=== PATIENT | male | born 1950 | race Caucasian/White ===

== ENCOUNTER 2022-08-15 11:08 | Inpatient (IN) | payer MEDICARE ==
[2022-08-15] MEDS ORDERED: Ondansetron PF 4 MG/2 ML Vial IVP PRN (14:20)
[2022-08-15] MEDS ORDERED: Acetaminophen 325 MG TAB PO PRN (14:20)
[2022-08-15] MEDS ORDERED: Acetaminophen 650 MG Suppository PR PRN (14:20)
[2022-08-15] MEDS ORDERED: Ondansetron ODT 4 MG TAB PO PRN ×2 (14:20→14:37)
[2022-08-15 14:21] VITALS: BMI 48.4
[2022-08-15] MEDS ORDERED: Lorazepam 1 MG TAB PO PRN (14:37)
[2022-08-15] MEDS ORDERED: Electrolyte Replacement Protocol 1 EACH FS SCH (14:45)
[2022-08-15] MEDS ORDERED: Vancomycin 1 GM in Premix Bag 1 BAG IVPB SCH (14:45)
[2022-08-15] MEDS ORDERED: Ipratropium/Albuterol 3 ML NEB NEB PRN (15:09)
[2022-08-15 15:13] LABS: #Eosinphils 0.6 10x3/uL (0.0-0.5); #Monocytes 0.9 10x3/uL (0.0-1.1); #Neutrophils 5.5 10x3/uL (1.5-8.4); %Basophils 0.5 % (0.0-2.0); %Eosinophils 6.9 % (0.0-6.0); %Lymphocytes 16.1 % (18.0-47.0); %Monocytes 10.5 % (0.0-10.0); %Neutrophils 65.5 % (40.0-75.0); Hemoglobin 16.9 g/dL (13.5-17.5); Mean Corpuscular HGB CONC 32.4 g/dL (32.0-36.0); Mean Corpuscular Hemoglobin 30.3 pg (27.0-33.0); Mean Corpuscular Volume 93.4 fl (81.2-95.1); Mean Platelet Volume 10.1 fl (7.4-10.4); Platelet Count 242 10x3/uL (150-450); RBC Distribution Width 14.6 % (11.5-14.5); Red Blood Cell (RBC) Count 5.58 10x6/uL (4.32-5.72); White Blood Cell (WBC) Count 8.3 10x3/uL (3.5-10.5)
[2022-08-15 15:27] LABS: Anion Gap 16 mmol/L (10-20); BUN (Urea Nitrogen) 13 mg/dL (8.4-25.7); Calc. Creatinine Clearance 119 mL/min (70-130); Calcium 10.1 mg/dL (7.8-10.44); Carbon Dioxide 26 mmol/L (23-31); Chloride 99 mmol/L (98-107); Estimated GFR 64; Glucose 98 mg/dL (83-110); Magnesium 2.2 mg/dL (1.6-2.6); Potassium 4.3 mmol/L (3.5-5.1); Sodium 137 mmol/L (136-145)
[2022-08-15] MEDS: Thiamine HCl 200 MG/2 ML VIAL SLOW IVP SCH (15:41)
[2022-08-15] MEDS ORDERED: VANCOMYCIN 2 GRAM/400 ML BAG 2 GM in Premix Bag 1 BAG IVPB SCH (16:00)
[2022-08-15 16:14] LABS: Syphilis Antibody Nonreactive (Nonreactive); Syphilis Antibody Index 0.06 S/CO (<1.00 Non-Reactive)
[2022-08-15 17:57] LABS: Amphetamine Not Detected (NotDetected); Barbiturates Screen Not Detected (NotDetected); Benzodiazepine Screen Not Detected (NotDetected); Cocaine Metabolite Screen Not Detected (NotDetected); Methadone Not Detected (NotDetected); Methamphetamine Not Detected (NotDetected); Opiate Screen Not Detected (NotDetected); Oxycodone Screen Not Detected (NotDetected); Phencyclidine (PCP) Not Detected (NotDetected); THC/Cannabinoid Screen Not Detected (NotDetected); Tricyclic Screen Not Detected (NotDetected)
[2022-08-15] MEDS: Cefepime 2 GM in Sodium Chloride 0.9% 100 ML IVPB SCH (20:11)
[2022-08-16] MEDS: Vancomycin 1.5 GRAM/300 ML BAG 1.5 GM in Premix Bag 1 BAG IVPB SCH ×2 (04:34→16:18)
[2022-08-16] MEDS: Furosemide 40 MG/4 ML VIAL SLOW IVP SCH ×2 (05:39→16:17)
[2022-08-16 05:58] LABS: #Eosinphils 0.6 10x3/uL (0.0-0.5); #Monocytes 0.8 10x3/uL (0.0-1.1); #Neutrophils 4.7 10x3/uL (1.5-8.4); %Basophils 0.5 % (0.0-2.0); %Eosinophils 8.1 % (0.0-6.0); %Lymphocytes 16.7 % (18.0-47.0); %Monocytes 10.6 % (0.0-10.0); %Neutrophils 63.6 % (40.0-75.0); Hemoglobin 16.4 g/dL (13.5-17.5); Mean Corpuscular Hemoglobin 30.3 pg (27.0-33.0); Mean Corpuscular Volume 94.6 fl (81.2-95.1); Mean Platelet Volume 10.2 fl (7.4-10.4); Platelet Count 234 10x3/uL (150-450); RBC Distribution Width 14.8 % (11.5-14.5); Red Blood Cell (RBC) Count 5.41 10x6/uL (4.32-5.72); White Blood Cell (WBC) Count 7.4 10x3/uL (3.5-10.5)
[2022-08-16 06:13] LABS: Anion Gap 14 mmol/L (10-20); BUN (Urea Nitrogen) 15 mg/dL (8.4-25.7); Calc. Creatinine Clearance 140 mL/min (70-130); Calcium 9.8 mg/dL (7.8-10.44); Carbon Dioxide 26 mmol/L (23-31); Chloride 102 mmol/L (98-107); Estimated GFR 77; Glucose 99 mg/dL (83-110); Potassium 4.1 mmol/L (3.5-5.1); Sodium 138 mmol/L (136-145)
[2022-08-16] MEDS: Cefepime 2 GM in Sodium Chloride 0.9% 100 ML IVPB SCH ×2 (09:31→20:05)
[2022-08-16] MEDS: Folic Acid 1 MG TAB PO SCH (09:32)
[2022-08-16] MEDS: Multivit, Therapeutic 1 TAB PO SCH (09:32)
[2022-08-16] MEDS: NIFEdipine XL 60 MG TAB PO SCH (09:32)
[2022-08-16] MEDS ORDERED: Silver Sulfadiazine 1% Cream 20 GM TUBE TOP PRN (13:53)
[2022-08-16] MEDS ORDERED: Lorazepam 1 MG TAB PO PRN (14:37)
[2022-08-16] MEDS: Thiamine HCl 200 MG/2 ML VIAL SLOW IVP SCH (16:18)
[2022-08-16] MEDS ORDERED: predniSONE 20 MG TAB PO SCH (17:00)
[2022-08-16] MEDS: Mometasone/Formoterol 60 PUFF AER INH SCH (19:57)
[2022-08-17 04:28] LABS: Anion Gap 14 mmol/L (10-20); BUN (Urea Nitrogen) 17 mg/dL (8.4-25.7); Calc. Creatinine Clearance 138 mL/min (70-130); Calcium 9.7 mg/dL (7.8-10.44); Carbon Dioxide 26 mmol/L (23-31); Chloride 104 mmol/L (98-107); Estimated GFR 75; Glucose 164 mg/dL (83-110); Sodium 140 mmol/L (136-145); Vancomycin, Trough 19.1 ug/mL
[2022-08-17 04:30] LABS: #Monocytes 0.3 10x3/uL (0.0-1.1); %Basophils 0.4 % (0.0-2.0); %Eosinophils 0.6 % (0.0-6.0); %Lymphocytes 10.6 % (18.0-47.0); %Monocytes 4.1 % (0.0-10.0); %Neutrophils 83.9 % (40.0-75.0); Hemoglobin 16.1 g/dL (13.5-17.5); Mean Corpuscular HGB CONC 31.7 g/dL (32.0-36.0); Mean Corpuscular Hemoglobin 29.9 pg (27.0-33.0); Mean Corpuscular Volume 94.4 fl (81.2-95.1); Platelet Count 213 10x3/uL (150-450); RBC Distribution Width 14.4 % (11.5-14.5); Red Blood Cell (RBC) Count 5.38 10x6/uL (4.32-5.72); White Blood Cell (WBC) Count 7.1 10x3/uL (3.5-10.5)
[2022-08-17] MEDS: Vancomycin 1.5 GRAM/300 ML BAG 1.5 GM in Premix Bag 1 BAG IVPB SCH (04:37)
[2022-08-17] MEDS: Furosemide 40 MG/4 ML VIAL SLOW IVP SCH ×2 (06:33→13:48)
[2022-08-17] MEDS: Mometasone/Formoterol 60 PUFF AER INH SCH ×2 (07:48→19:15)
[2022-08-17] MEDS: Cefepime 2 GM in Sodium Chloride 0.9% 100 ML IVPB SCH (10:54)
[2022-08-17] MEDS: Folic Acid 1 MG TAB PO SCH (10:57)
[2022-08-17] MEDS: NIFEdipine XL 60 MG TAB PO SCH (10:57)
[2022-08-17] MEDS: Multivit, Therapeutic 1 TAB PO SCH (10:57)
[2022-08-17] MEDS: predniSONE 20 MG TAB PO SCH (10:57)
[2022-08-17] MEDS: Thiamine HCl 200 MG/2 ML VIAL SLOW IVP SCH (13:48)
[2022-08-17] MEDS ORDERED: Lorazepam 1 MG TAB PO PRN (14:37)
[2022-08-17] MEDS: Doxycycline 100 MG CAP PO SCH (20:58)
[2022-08-18 04:40] LABS: #Basophils 0.1 10x3/uL (0.0-0.2); #Eosinphils 0.4 10x3/uL (0.0-0.5); #Monocytes 0.9 10x3/uL (0.0-1.1); #Neutrophils 6.3 10x3/uL (1.5-8.4); %Basophils 0.5 % (0.0-2.0); %Lymphocytes 17.8 % (18.0-47.0); %Monocytes 9.5 % (0.0-10.0); %Neutrophils 67.6 % (40.0-75.0); Hemoglobin 15.9 g/dL (13.5-17.5); Mean Corpuscular HGB CONC 32.6 g/dL (32.0-36.0); Mean Corpuscular Hemoglobin 30.5 pg (27.0-33.0); Mean Corpuscular Volume 93.3 fl (81.2-95.1); Mean Platelet Volume 10.2 fl (7.4-10.4); Platelet Count 212 10x3/uL (150-450); RBC Distribution Width 14.3 % (11.5-14.5); Red Blood Cell (RBC) Count 5.22 10x6/uL (4.32-5.72); White Blood Cell (WBC) Count 9.3 10x3/uL (3.5-10.5)
[2022-08-18 04:42] LABS: Anion Gap 13 mmol/L (10-20); BUN (Urea Nitrogen) 16 mg/dL (8.4-25.7); Calc. Creatinine Clearance 168 mL/min (70-130); Calcium 10.2 mg/dL (7.8-10.44); Carbon Dioxide 27 mmol/L (23-31); Chloride 103 mmol/L (98-107); Estimated GFR 92; Glucose 106 mg/dL (83-110); Potassium 3.4 mmol/L (3.5-5.1); Sodium 140 mmol/L (136-145)
[2022-08-18] MEDS: Furosemide 40 MG/4 ML VIAL SLOW IVP SCH ×2 (06:23→15:40)
[2022-08-18] MEDS ORDERED: Potassium Chloride 20 MEQ TAB PO SCH (08:00)
[2022-08-18] MEDS: Mometasone/Formoterol 60 PUFF AER INH SCH ×2 (08:24→20:25)
[2022-08-18] MEDS: NIFEdipine XL 60 MG TAB PO SCH ×2 (11:18→11:19)
[2022-08-18] MEDS: Doxycycline 100 MG CAP PO SCH ×2 (11:18→20:59)
[2022-08-18] MEDS: Folic Acid 1 MG TAB PO SCH (11:19)
[2022-08-18] MEDS: Multivit, Therapeutic 1 TAB PO SCH (11:19)
[2022-08-18] MEDS: predniSONE 20 MG TAB PO SCH (11:19)
[2022-08-18] MEDS ORDERED: Lorazepam 0.5 MG TAB PO PRN (14:37)
[2022-08-18] MEDS ORDERED: Thiamine 100 MG TAB PO SCH (14:45)
[2022-08-19 05:13] LABS: #Basophils 0.1 10x3/uL (0.0-0.2); #Eosinphils 0.3 10x3/uL (0.0-0.5); #Monocytes 0.8 10x3/uL (0.0-1.1); #Neutrophils 5.2 10x3/uL (1.5-8.4); %Basophils 0.7 % (0.0-2.0); %Eosinophils 3.2 % (0.0-6.0); %Lymphocytes 20.7 % (18.0-47.0); %Monocytes 10.4 % (0.0-10.0); %Neutrophils 64.5 % (40.0-75.0); Hemoglobin 16.2 g/dL (13.5-17.5); Mean Corpuscular HGB CONC 32.5 g/dL (32.0-36.0); Mean Corpuscular Hemoglobin 30.3 pg (27.0-33.0); Mean Corpuscular Volume 93.3 fl (81.2-95.1); Platelet Count 204 10x3/uL (150-450); RBC Distribution Width 14.2 % (11.5-14.5); Red Blood Cell (RBC) Count 5.34 10x6/uL (4.32-5.72); White Blood Cell (WBC) Count 8.1 10x3/uL (3.5-10.5)
[2022-08-19 05:19] LABS: Anion Gap 17 mmol/L (10-20); BUN (Urea Nitrogen) 26 mg/dL (8.4-25.7); Calc. Creatinine Clearance 164 mL/min (70-130); Calcium 10.3 mg/dL (7.8-10.44); Carbon Dioxide 24 mmol/L (23-31); Chloride 104 mmol/L (98-107); Estimated GFR 91; Glucose 97 mg/dL (83-110); Potassium 3.8 mmol/L (3.5-5.1); Sodium 141 mmol/L (136-145)
[2022-08-19] MEDS: Furosemide 40 MG/4 ML VIAL SLOW IVP SCH (06:26)
[2022-08-19] MEDS: Mometasone/Formoterol 60 PUFF AER INH SCH (07:53)
[2022-08-19 08:52] VITALS: BP 150/96; TEMP 97.9
[2022-08-19] MEDS: Doxycycline 100 MG CAP PO SCH (10:02)
[2022-08-19] MEDS: predniSONE 20 MG TAB PO SCH (10:02)
[2022-08-19] MEDS: Folic Acid 1 MG TAB PO SCH (10:03)
[2022-08-19] MEDS: Multivit, Therapeutic 1 TAB PO SCH (10:03)
== END 2022-08-19 12:56 | disposition home or self-care (01) | DRG 291 ==
LOC: CSHTELE 11:08 → INTOOBSV 11:08 → OBSVTOIN 08-17 11:38
PROVIDERS: ADMIT Internal Medicine; ATTEND Internal Medicine
DX: I11.0 Hypertensive heart disease with heart failure (principal); I50.33 Acute on chronic diastolic (congestive) heart failure; J96.21 Acute and chronic respiratory failure with hypoxia; E66.2 Morbid (severe) obesity with alveolar hypoventilation; J44.1 Chronic obstructive pulmonary disease with (acute) exacerbation; Z68.42 Body mass index [BMI] 45.0-49.9, adult; I25.10 Atherosclerotic heart disease of native coronary artery without angina pectoris; E78.5 Hyperlipidemia, unspecified; F17.210 Nicotine dependence, cigarettes, uncomplicated; S61.401A Unspecified open wound of right hand, initial encounter; F10.10 Alcohol abuse, uncomplicated; L08.9 Local infection of the skin and subcutaneous tissue, unspecified; Z88.8 Allergy status to other drugs, medicaments and biological substances; Z79.899 Other long term (current) drug therapy; Z91.018 Allergy to other foods; Z71.6 Tobacco abuse counseling; Z71.41 Alcohol abuse counseling and surveillance of alcoholic; Z20.822 Contact with and (suspected) exposure to COVID-19; Z79.52 Long term (current) use of systemic steroids
CPT/HCPCS: 36415; 80048; 80202; 80306; 83735; 83880; 84484; 85025; 85379; 86780; 93306; 94760; 96372; 96374; 96375; 96376; 97139; G0378; J0692; J1650; J1940; J3370; J3411; J3490; J7512